=== PATIENT | female | born 2000 | race Caucasian/White ===

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

== ENCOUNTER 2024-10-08 16:47 | Emergency (ER) | payer MEDICAID, SELFPAY ==
[2024-10-08] MEDS ORDERED: Acetaminophen 500 MG TAB ONE (17:44)
[2024-10-08] MEDS ORDERED: Ibuprofen 800 MG TAB ONE (17:44)
== END 2024-10-08 17:59 | disposition home or self-care (01) ==
LOC: MADERS 16:47
DX: S80.11XA Contusion of right lower leg, initial encounter (principal); X58.XXXA Exposure to other specified factors, initial encounter
CPT/HCPCS: 99283